=== PATIENT | male | born 1995 ===

== ENCOUNTER → 2018-03-07 | Outpatient (CLI) | payer OTHER ==
[~2018-03-07] MED LIST: AMOCLA500 PO; AMOX500 PO; CEPH500 PO; SULTRIDS PO
[2018-03-08 21:07] LABS: CHLAMYDIA TRACHOMATIS, NAA Negative (Negative); NEISSERIA GONORRHOEAE, NAA Negative (Negative)
== END ==
LOC: LAB 11:57 → LAB SHORT 11:57
PROVIDERS: Registered Nurse Community Health
DX: Z11.3 Encounter for screening for infections with a predominantly sexual mode of transmission (principal)
CPT/HCPCS: 87491; 87591

== ENCOUNTER 2025-02-08 10:54 | Day surgery (SDC) | payer OTHER ==
[~2025-02-08] VITALS: Ht 177.8 cm; Wt 98.3 kg
[~2025-02-08 10:54] MED LIST changes: +Bupivacaine 0.5% W/EPI 1:200000 SDV 30 ML Vial ONE; +Dexmedetomidine HCL 200 MCG / 2 ML ONE; +propofoL 50 ML IV ONE
[2025-02-08] MEDS ORDERED: Midazolam HCl 1MG / ML 2ML Vial ONE (11:03)
[2025-02-08] MEDS ORDERED: FentaNYL Citrate 50 MCG/ML 2 ML Injection ONE ×2 (11:03→13:23)
[2025-02-08] MEDS ORDERED: Dexamethasone Sod Phos 10 MG/ML 1ML VIAL ONE (11:15)
[2025-02-08] MEDS ORDERED: Lactated Ringer's 1,000 ML IV ONE ×3 (11:28→12:55)
--- NOTE | 2025-02-08 11:34 | NUR ---
02/08/25 1134 Castillo Cotton TIME OUT FOR BLOCK AT 1130.
[2025-02-08] MEDS ORDERED: propofoL 20 ML IV ONE (11:52)
[2025-02-08] MEDS ORDERED: CeFAZolin Sodium 2,000 MG VIAL ONE (11:55)
[2025-02-08] MEDS ORDERED: ePHEDrine Sulfate 50 MG/ML 1ML Injection ONE (12:32)
[2025-02-08] MEDS ORDERED: propofoL 50 ML IV ONE (13:28)
[2025-02-08] MEDS ORDERED: Ondansetron HCl 2 MG / ML 2ML Vial ONE (14:20)
[2025-02-08 14:46] VITALS: BP 121/61
--- NOTE | 2025-02-08 14:56 | NUR ---
02/08/25 1456 MIKAYLA REECE AT BEDSIDE.
== END 2025-02-08 15:45 | disposition home or self-care (01) ==
LOC: ORSCSDS 10:54
PROVIDERS: Podiatrist Foot & Ankle Surgery
PROC: 0QBL4ZZ Excision of Right Tarsal, Percutaneous Endoscopic Approach (ICD-10-PCS; principal; 2025-02-08 12:00)
PROC: 0JBN0ZZ Excision of Right Lower Leg Subcutaneous Tissue and Fascia, Open Approach (ICD-10-PCS; principal; 2025-02-08 12:00)
DX: M93.271 Osteochondritis dissecans, right ankle and joints of right foot (principal); M65.971 Unspecified synovitis and tenosynovitis, right ankle and foot; M13.871 Other specified arthritis, right ankle and foot
CPT/HCPCS: C1713; C1762; J0690; J1100; J2250; J2405; J2704; J3010; J7120